=== PATIENT | male | born 1980 | race Caucasian/White ===

== ENCOUNTER → 2016-12-31 | Outpatient (CLI) | payer BC ==
[2014-10-08 14:20] VITALS: BP 133/97
[~2016-12-31] MED LIST: ADVAIR 250/28 DISKU1 IH; ALBUTEROL2.5 MG/3 M IH; PERCOCET 325 MG1 TA2 PO; PREDNISONE20 M1 PO; PROVENTIL0.09 MG/Ac IH; SINGULAIR4 MG PO
== END ==
LOC: RAD 13:19
DX: M79.672 Pain in left foot (principal)